=== PATIENT | female | born 1985 | race Caucasian/White ===

== ENCOUNTER 2017-01-24 15:00 | Emergency (ER) | payer MEDICAID ==
[~2017-01-24] VITALS: Ht 157.5 cm; Wt 122.7 kg
[2017-01-24] MEDS ORDERED: ALPR0.255 PO (15:23)
[2017-01-24] MEDS ORDERED: HYDR-4031 PO (15:23)
[2017-01-24] MEDS ORDERED: TRAZ-144 PO (15:23)
[2017-01-24] MEDS ORDERED: LISI-660 PO (15:23)
[2017-01-24] MEDS ORDERED: LITH300C3 PO (15:23)
[2017-01-24] MEDS ORDERED: SERT50TA12 PO (15:23)
[2017-01-24] MEDS ORDERED: ACETAMINOPHEN 325 MG TABLET PO ONE (16:30)
[2017-01-24] MEDS ORDERED: ALBUTEROL SULFATE 5 MG/ML 20 ML NEB SOLN [BULK] NEB ONE (16:30)
[2017-01-24] MEDS ORDERED: KETOROLAC TROMETHAMINE 30 MG/ML VIAL IM ONE (17:30)
[2017-01-24] MEDS ORDERED: LISI1TAB9 PO (17:31)
[2017-01-24 19:14] VITALS: BP 136/65
== END 2017-01-24 19:16 | disposition home or self-care (01) ==
LOC: EMS 15:02
DX: H66.93 Otitis media, unspecified, bilateral (principal); J40 Bronchitis, not specified as acute or chronic; R51 Headache; J45.909 Unspecified asthma, uncomplicated; I10 Essential (primary) hypertension; G43.909 Migraine, unspecified, not intractable, without status migrainosus; F17.210 Nicotine dependence, cigarettes, uncomplicated
CPT/HCPCS: 71020; 81025; 94640; 96372; 99284; J1885; J7611

== ENCOUNTER 2017-11-26 00:04 | Emergency (ER) | payer MEDICAID ==
[~2017-11-26] VITALS: Ht 157.5 cm; Wt 122.0 kg
[~2017-11-26 00:04] MED LIST: ALPR0.255 PO; HYDR-4031 PO; LISI1TAB9 PO; LITH300C3 PO; SERT50TA12 PO; TRAZ-219 PO
[2017-11-26] MEDS ORDERED: LIDOCAINE 1%/EPI 1:200,000/PF 30 ML VIAL INJ ONE (02:00)
[2017-11-26] MEDS ORDERED: LIDOCAINE 1%/EPI 1:200,000/PF 10 ML VIAL INJ ONE (02:45)
[2017-11-26] MEDS ORDERED: PERTUSS(ACELL),DIPH,TET VAC/PF 0.5 ML VIAL IM ONE (03:15)
[2017-11-26 03:33] VITALS: BP 128/80
== END 2017-11-26 03:34 | disposition home or self-care (01) ==
LOC: EMS 00:04
DX: S61.412A Laceration without foreign body of left hand, initial encounter (principal); J45.909 Unspecified asthma, uncomplicated; I10 Essential (primary) hypertension; G43.909 Migraine, unspecified, not intractable, without status migrainosus; F41.9 Anxiety disorder, unspecified; E66.9 Obesity, unspecified; F17.210 Nicotine dependence, cigarettes, uncomplicated; Z68.42 Body mass index [BMI] 45.0-49.9, adult; Z79.899 Other long term (current) drug therapy; W26.0XXA Contact with knife, initial encounter; Y93.89 Activity, other specified; Y92.89 Other specified places as the place of occurrence of the external cause; Y99.8 Other external cause status
CPT/HCPCS: 12001; 73130; 81025; 90471; 90715; 99284; J3490